=== PATIENT | female | born 1990 | race Caucasian/White ===

== ENCOUNTER 2017-07-18 11:04 | Emergency (ER) | payer MEDICAID ==
[~2017-07-18] VITALS: Ht 157.5 cm; Wt 61.5 kg
[~2017-07-18 11:04] MED LIST: BACTDS PO; PHEN-538 PO
[2017-07-18 11:09] VITALS: Ht 157.5 cm; Wt 61.5 kg
--- NOTE | 2017-07-18 12:52 | ERD ---
ER Documentation Chief Complaint Date/Time DATE: 07/18/17 TIME: 12:48 Chief Complaint cold symptoms x 2 days HPI This is a 27-year-old female presenting to emergency department for cough and shortness of breath, rhinitis, rhinorrhea and chest wall pain 2 days. Patient states symptoms started yesterday and became worse at night. Patient reports having some mild wheezing at night. No history of asthma. Patient reports tactile fevers at home however did not check temperature. Patient took Motrin 4 hours prior to arrival. Patient states she has chest wall pain that is worse with coughing or sneezing. No heart palpitations or chest pressure. No dysuria , hematuria, abdominal pain, nausea or vomiting. Cough is productive with clear sputum. Currently denies any shortness of breath or difficulty breathing. No labored breathing. No sore throat, difficult to swallowing or drooling. No sick contacts. No recent travel. ROS All systems reviewed and are negative except as per history of present illness. Medications Home Meds Active Scripts Guaifenesin* (Robitussin*) 100 Mg/5 Ml Syrup, 200 MG PO Q4H Y for COUGH, #240 ML Prov:JORI LINDA NP 07/18/17 Phenazopyridine Hcl* (Pyridium*) 200 Mg Tab, 200 MG PO TID Y for DYSURIA, #6 TAB Prov:SUSHMA SERNA MD 01/27/16 Sulfamethoxazole-Trimethoprim* (Bactrim* DS) 800-160 Mg Tab, 1 TAB PO BID for 7 Days, TAB Prov:SUSHMA SERNA MD 01/27/16 Allergies Allergies: Coded Allergies: No Known Allergy (Unverified , 01/26/16) PMhx/Soc Medical and Surgical Hx: pt denies Medical Hx, pt denies Surgical Hx Hx Alcohol Use: No Hx Substance Use: No Hx Tobacco Use: No Physical Exam Vitals Vital Signs Date Time Temp Pulse Resp B/P Pulse Ox O2 Delivery O2 Flow Rate FiO2 07/18/17 11:09 98.9 74 18 103/55 99 Physical Exam Const: No acute distress, alert, talking in complete sentences. Head: Atraumatic Eyes: Normal Conjunctiva ENT: Normal External Ears, Nose and Mouth. Neck: Full range of motion..~ No meningismus. Resp: Clear to auscultation bilaterally. No wheezing, rhonchi or crackles. No stridor or labored breathing. No intercostal retractions. Patient is talking in complete sentences. Cardio: Regular rate and rhythm, no murmurs Abd: Soft, non tender, non distended. Normal bowel sounds Skin: No petechiae or rashes Back: No midline or flank tenderness Ext: No cyanosis, or edema Neur: Awake and alert Psych: Normal Mood and Affect Procedures/MDM [place] [id number] Radiology Main Line: [phone] DIAGNOSTIC IMAGING REPORT Patient: VIRGEN LLOYD : 1990 Age: 27 Sex: F MR #: [id number] DOS: 07/18/17 1211 Ordering MD: JORI CHASE NP Location: [facility] Room/Bed: PROCEDURE: XR Chest PA CLINICAL INDICATION: Cough, fever TECHNIQUE: An PA radiograph of the chest was submitted. COMPARISON: None. FINDINGS: Cardiovascular: The cardiovascular silhouette appears unremarkable. Lung Diaz: The lung diaz appear clear with no nodule, alveolar infiltrate, or interstitial prominence evident. Pleural Spaces: There is no pneumothorax or pleural fluid accumulation evident. Osseous Structures: The osseous structures appear intact. Soft Tissues: The soft tissues appear unremarkable. IMPRESSION: Unremarkable PA chest. MDM: This is a 27-year-old female presenting to emergency department for cough, shortness of breath, rhinitis, rhinorrhea and chest wall pain 2 days. Patient states she took Motrin earlier today. Patient is afebrile upon arrival to ED and vital signs are stable. No signs or symptoms of respiratory distress. Oxygen saturation 99% on room air with 18 respirations per minute. Patient appears in no acute distress. Physical exam is overall unremarkable. A chest x -ray was ordered. Chest x-ray reviewed by radiologist as unremarkable. Patient appears in no acute distress. Vital signs remained stable. Low suspicion for pneumonia, pleural effusion, pneumothorax or acute [place]. Differential diagnosis includes but not limited to URI, influenza, otitis media , otitis externa, asthma exacerbation, croup, bronchitis, bronchiolitis and costochondritis. Patient is appropriate for outpatient management. Instructed patient to follow- up with primary care provider in the next 2-3 days for reassessment and additional management. Return to ED for any high fever, chest pain, difficulty breathing, shortness breath, wheezing, vomiting, diarrhea, abdominal pain or any new or worsening symptoms. Patient verbalizes understanding. All questions answered at discharge. Disclaimer: Inadvertent spelling and grammatical errors are likely due to EHR/ dictation software use and do not reflect on the overall quality of patient care. Also, please note that the electronic time recorded on this note does not necessarily reflect the actual time of the patient encounter. Departure Diagnosis: Primary Impression: Upper respiratory infection URI type: unspecified viral URI Qualified Code: J06.9 - Viral upper respiratory tract infection Condition: JORI Fleming NP Jul 18, 2017 12:52
--- NOTE | 2017-07-18 13:41 | RADRPT ---
PROCEDURE: XR Chest PA CLINICAL INDICATION: Cough, fever TECHNIQUE: An PA radiograph of the chest was submitted. COMPARISON: None. FINDINGS: Cardiovascular: The cardiovascular silhouette appears unremarkable. Lung Borden: The lung borden appear clear with no nodule, alveolar infiltrate, or interstitial promi nence evident. Pleural Spaces: There is no pneumothorax or pleural fluid accumulation evident. Osseous Structures: The osseous structures appear intact. Soft Tissues: The soft tissues appear unremarkable. IMPRESSION: Unremarkable PA chest. Physician Magdy Date Time Electronically viewed and signed by Valeri Gonzalez Physician on 07/18/2017 13:40 /
[2017-07-18] MEDS ORDERED: GUAI-637 PO (14:06)
== END 2017-07-18 14:15 | disposition home or self-care (01) ==
LOC: FTE 11:04
DX: J06.9 Acute upper respiratory infection, unspecified (principal)
CPT/HCPCS: 71010; Z7502

== ENCOUNTER 2017-10-29 20:35 | Emergency (ER) | END 2017-10-30 00:43 | disposition home or self-care (01) ==

== ENCOUNTER 2017-11-10 05:21 | Emergency (ER) | END 2017-11-10 07:33 | disposition home or self-care (01) ==

== ENCOUNTER 2018-04-21 10:42 | Emergency (ER) | END 2018-04-21 12:17 | disposition home or self-care (01) ==

== ENCOUNTER 2018-05-03 22:46 | Emergency (ER) | END 2018-05-04 00:41 | disposition left against medical advice (07) ==

== ENCOUNTER 2018-08-18 21:20 | Emergency (ER) | END 2018-08-18 22:45 | disposition left against medical advice (07) ==

== ENCOUNTER 2019-03-28 23:45 | Emergency (ER) | payer SELFPAY ==
[~2019-03-28] VITALS: Ht 152.4 cm; Wt 62.4 kg
[~2019-03-28 23:45] MED LIST changes: +GUAI-637 PO; +IBUP-1542 PO; +IBUP800T48 PO; +MECL-77 PO; +POLY10DR19 LEFT EYE; +SODI126M NASAL
[2019-03-28 23:46] VITALS: BP 112/73; PULSE 70; RESP 18; Ht 152.4 cm; Wt 62.4 kg
[2019-03-29] MEDS ORDERED: AMOX1TAB10 PO (00:47)
[2019-03-29] MEDS ORDERED: IBUP-1561 PO (00:47)
[2019-03-29] MEDS ORDERED: D-ME118S24 PO (00:47)
--- NOTE | 2019-03-29 00:51 | ERD ---
ER Documentation Chief Complaint Chief Complaint R EAR PAIN, ST X'S 5 DAYS ROS All systems reviewed and are negative except as per history of present illness. Medications Home Meds Active Scripts D-Methorphan Hb/P-Epd HCl/Bpm (Ccemdlubgb-Nmugpzjiozl-Ue Syr) 118 Ml Syrup, 5 ML PO Q4H PRN for COUGH for 10 Days, #1 BOTTLE Prov:SUSHMA RODRIGUES DO 03/29/19 Ibuprofen* (Motrin*) 400 Mg Tab, 400 MG PO Q6 PRN for PAIN, #30 TAB Prov:SUSHMA RODRIGUES DO 03/29/19 Amoxicillin/Potassium Clav (Amox-Clav 875-125 mg Tablet) 875-125 mg Tab, 1 TAB PO BID for otitis media for 7 Days, #14 TAB Prov:SUSHMA RODRIGUES DO 03/29/19 Ibuprofen* (Motrin*) 800 Mg Tab, 800 MG PO Q6H PRN for PAIN AND OR ELEVATED TEMP, #30 TAB Prov:VALENTIN CHAVEZ PA-C 05/04/18 Meclizine Hcl* (Meclizine Hcl*) 25 Mg Tablet, 25 MG PO Q6 PRN for DIZZINESS, #14 TAB Prov:SUSHMA SERNA MD 04/21/18 Sodium Chloride (Saline Nasal Mist) 126 Ml Mist, 2 SPRAY NASAL Q2H PRN for NASAL CONGESTION, #1 BOTTLE Prov:FRANKIE ANDERSEN [employer] 11/10/17 Ibuprofen* (Motrin*) 600 Mg Tab, 600 MG PO Q6H PRN for PAIN AND OR ELEVATED TEMP, #30 TAB Prov:FRANKIE ANDERSEN NP 11/10/17 Polymyxin B Sulfate-TMP* (Polymyxin B-TMP Eye Drops*) 10 Ml Drops, 1 DROP LEFT EYE QID for 7 Days, EA Prov:SUSY HASSAN [employer] 10/30/17 Guaifenesin* (Robitussin*) 100 Mg/5 Ml Syrup, 200 MG PO Q4H PRN for COUGH, #240 ML Prov:JORI LINDA [employer] 07/18/17 Phenazopyridine Hcl* (Pyridium*) 200 Mg Tab, 200 MG PO TID PRN for DYSURIA, #6 TAB Prov:SUSHMA SERNA MD 01/27/16 Sulfamethoxazole-Trimethoprim* (Bactrim* DS) 800-160 Mg Tab, 1 TAB PO BID for 7 Days, TAB Prov:SUSHMA SERNA MD 01/27/16 Allergies Allergies: Coded Allergies: No Known Allergy (Unverified , 11/10/17) PMhx/Soc History of Surgery: No Anesthesia Reaction: No Hx Neurological Disorder: No Hx Respiratory Disorders: No Hx Cardiac Disorders: No Hx Psychiatric Problems: No Hx Miscellaneous Medical Probl: No Hx Alcohol Use: No Hx Substance Use: No Hx Tobacco Use: No Smoking Status: Never smoker Physical Exam Vitals Vital Signs Date Temp Pulse Resp B/P (MAP) Pulse Ox O2 O2 Flow FiO2 Time Delivery Rate 03/28/19 97.3 70 18 112/73 99 23:46 (86) Physical Exam Const: No acute distress Head: Atraumatic Eyes: Normal Conjunctiva ENT: Normal External Ears, Nose and Mouth. Neck: Full range of motion. No meningismus. Resp: Clear to auscultation bilaterally Cardio: Regular rate and rhythm, no murmurs Abd: Soft, non tender, non distended. Normal bowel sounds Skin: No petechiae or rashes Back: No midline or flank tenderness Ext: No cyanosis, or edema Neur: Awake and alert Psych: Normal Mood and Affect Departure Diagnosis: Primary Impression: Right otitis media Otitis media type: unspecified Qualified Codes: H66.91 - Otitis media, unspecified, right ear Condition: Fair Patient Instructions: Otitis Media, Abx Tx (Adult) Referrals: [facility] YOU HAVE RECEIVED A MEDICAL SCREENING EXAM AND THE RESULTS INDICATE THAT YOU DO NOT HAVE A CONDITION THAT REQUIRES URGENT TREATMENT IN THE EMERGENCY DEPARTMENT. FURTHER EVALUATION AND TREATMENT OF YOUR CONDITION CAN WAIT UNTIL YOU ARE SEEN IN YOUR DOCTORS OFFICE WITHIN THE NEXT 1-2 DAYS. IT IS YOUR RESPONSIBILITY TO MAKE AN APPOINTMENT FOR FOLOW-UP CARE. IF YOU HAVE A PRIMARY DOCTOR --you should call your primary doctor and schedule an appointment IF YOU DO NOT HAVE A PRIMARY DOCTOR YOU CAN CALL OUR PHYSICIAN REFERRAL HOTLINE AT IF YOU CAN NOT AFFORD TO SEE A PHYSICIAN YOU CAN CHOSE FROM THE FOLLOWING [facility] [address] [facility] [address] [facility]. [facility] [address] [facility] [address] [facility]. [facility] [address] [facility]. [facility] [address] Additional Instructions: Call your primary care doctor TOMORROW for an appointment during the next 1-2 days.See the doctor sooner or return here if your condition worsens before your appointment time. SUSHMA RODRIGUES DO Mar 29, 2019 00:50
== END 2019-03-29 01:00 | disposition home or self-care (01) ==
LOC: FTE 23:45
DX: H66.91 Otitis media, unspecified, right ear (principal)
CPT/HCPCS: 99283